=== PATIENT | male | born 1945 ===

== ENCOUNTER 2017-03-30 06:53 | Inpatient (IN) | payer MEDICARE ==
[2017-03-30] MEDS ORDERED: Propofol 10 mg/ml Inj (20 ML) ONE (09:01)
[2017-03-30] MEDS ORDERED: Lidocaine Hydrochloride 5 ML INJ ONE (09:01)
--- NOTE | 2017-03-30 09:05 | CP.SDSHP ---
Same Day Surgery H & P - History Proposed Procedure: EGD - Previous Medical/Surgical History Cardiac: Hypertension Endocrine/Metabolic: Diabetes Previous Surgical History: Appendectomy - Allergies Allergies: Allergies No Known Allergies Allergy (Unverified 03/30/17 07:12) - Current Medications Current Medications: See reconciliation sheet - Physical Exam General Appearance: WD WN male in NAD Vital Signs: Vital Signs 03/30/17 07:05 Temperature 97.5 F L Pulse Rate 67 Respiratory 19 Rate Blood Pressure 98/54 L O2 Sat by Pulse 97 Oximetry Mental Status: Alert & Oriented x3 Neuro: WNL Heart: WNL Lungs: WNL GI: WNL - {Optional Preform as Required} Abdomen: WNL - Impression Impression: Dyspepsia, abdominal pain Pt. Evaluated Today:Candidate for Anesthesia & Procedure: Yes - Date & Time Date: 03/30/17 Time: 09:05 Short Stay Discharge - Short Stay Discharge Admitting Diagnosis/Reason for Visit: DYSPEPSIA Disposition: HOME/ ROUTINE
[2017-03-30] MEDS ORDERED: Lactated Ringer's 500 ML IV ONE (09:06)
[2017-03-30] MEDS ORDERED: Pneumococcal 23-Valent Vaccine IM ONE (12:58)
--- NOTE | 2017-03-30 13:09 | CP.PCM.HP ---
<Cuauhtemoc Olmos - Last Filed: 03/30/17 14:48> History of Present Illness - History of Present Illness History of Present Illness: PGY1 History and Physical for Dr. Deleon Patient is at 71 year old male with a past medical history of diabetes, HTN, gastritis and palpitations. Patient is s/p EGD and was found to be in new onset afib. Patient states he has experienced palpitations on and off for many years. He reports having multiple stress tests, ekgs, ECHOs and a prior cardiac cath, all having negative results. He states he had recently seen Dr. Gibson for the palpitations who instructed him to get and EGD done due to multiple negative cardiac tests. He reports he has experienced some intermittent abdominal discomfort that is not associated with anything. He denies any fevers, chills, nausea, vomiting, diarrhea, constipation, shortness of breath or chest pain. He states he currently feels normal with no complaints at this time. Patient was in afib on the monitor throughout the exam but denied any feeling of palpitations. Patient states that he does not regularly use his medications. He states that he has experienced some abdominal discomfort and he thinks that it is partially due to the medications. He also feels that he does not need to take them everyday because his conditions are under control. PMD: Dr. Tinsley PMH: diabetes, HTN, gastritis and palpitations Family: DM and HTN Social: denies tobacco, alcohol or illicit drug use Allergies: NKDA Present on Admission - Present on Admission Any Indicators Present on Admission: Yes History of Uncontrolled Diabetes: Yes Review of Systems - Review of Systems All systems: reviewed and no additional remarkable complaints except (as per HPI ) Past Patient History - Past Medical History & Family History Past Medical History?: Yes - Past Social History Smoking Status: Never Smoked - CARDIAC Hx Cardiac Disorders: Yes Hx Hypercholesterolemia: Yes Hx Hypertension: Yes - PULMONARY Hx Respiratory Disorders: No - NEUROLOGICAL Hx Neurological Disorder: No - HEENT Hx HEENT Problems: No - RENAL Hx Chronic Kidney Disease: No - ENDOCRINE/METABOLIC Hx Endocrine Disorders: Yes Hx Diabetes Mellitus Type 1: Yes - HEMATOLOGICAL/ONCOLOGICAL Hx Blood Disorders: No - INTEGUMENTARY Hx Dermatological Problems: No - MUSCULOSKELETAL/RHEUMATOLOGICAL Hx Musculoskeletal Disorders: No - GASTROINTESTINAL Hx Gastrointestinal Disorders: Yes Hx Gastroesophageal Reflux: Yes - GENITOURINARY/GYNECOLOGICAL Hx Genitourinary Disorders: No - PSYCHIATRIC Hx Psychophysiologic Disorder: No - SURGICAL HISTORY Hx Surgeries: Yes Hx Appendectomy: Yes Hx Cataract Extraction: Yes (RIGHT EYE) Hx Orthopedic Surgery: Yes (FACIAL FX SURGERY) - ANESTHESIA Hx Anesthesia: Yes Hx Anesthesia Reactions: No Hx Malignant Hyperthermia: No Has any member of the family had a problem w/ anesthesia?: No Meds Allergies/Adverse Reactions: Allergies Allergy/AdvReac Type Severity Reaction Status Date / Time No Known Allergies Allergy Unverified 03/30/17 07:12 Physical Exam - Constitutional Appears: Well, Non-toxic, No Acute Distress - Head Exam Head Exam: ATRAUMATIC, NORMOCEPHALIC - Eye Exam Eye Exam: EOMI, Normal appearance, PERRL. absent: Scleral icterus - ENT Exam ENT Exam: Mucous Membranes Moist - Respiratory Exam Respiratory Exam: Clear to Auscultation Bilateral, NORMAL BREATHING PATTERN. absent: Accessory Muscle Use, Respiratory Distress - Cardiovascular Exam Cardiovascular Exam: Irregular Rhythm, +S1 - GI/Abdominal Exam GI & Abdominal Exam: Soft. absent: Distended, Guarding, Rigid, Tenderness - Extremities Exam Extremities exam: Positive for: pedal pulses present. Negative for: calf tenderness, pedal edema - Neurological Exam Neurological exam: Alert, CN II-XII Intact, Oriented x3 - Psychiatric Exam Psychiatric exam: Normal Affect, Normal Mood - Skin Skin Exam: Dry, Normal Color, Warm Results - Vital Signs Recent Vital Signs: Last Vital Signs Temp 97.5 F L 03/30/17 10:08 Pulse 99 H 03/30/17 10:08 Resp 13 03/30/17 10:08 BP 103/85 03/30/17 10:08 Pulse Ox 100 03/30/17 10:08 - Labs Labs: Laboratory Results - last 24 hr 03/30/17 03/30/17 07:14 11:58 POC Glucose (mg/dL) 175 H 142 H Assessment & Plan - Assessment and Plan (Free Text) Assessment: Patient is at 71 year old male with a past medical history of diabetes, HTN, gastritis and palpitations presenting with new onset afib s/p EGD Plan: New Onset Afib cardio consult, Dr. Gibson, help appreciated EKG - afib @ 97bpm, normal axis, no ST elevations Repeat EKG trop - <0.012, f/u x 2 q6h D-dimer - 260 f/u ECHO f/u TSH f/u free T4 f/u cardio recs Uncontrolled Diabetes Hgb A1c (jan 27) - 12.8 f/u repeat Hgb A1c Home Metformin on hold Hold Glipazide on hold hx of HTN Lisinopril 10mg PO daily Metoprolol Succ. ER 25mg PO daily Gastritis GI consult, Dr. Ndiaye, help appreciated s/p EGD - f/u official report Pepcid 40mg PO daily f/u GI recs Prophylactic Care SCDs Anti-coag contraindicated due to biopsy during EGD, hold until GI approval Pepcid 40mg PO daily Pneumonia vaccine Case discussed with Dr. Pancho Olmos PGY1 <Lor Deleon V - Last Filed: 03/30/17 18:15> Results - Vital Signs Recent Vital Signs: Last Vital Signs Temp 98 F 03/30/17 15:58 Pulse 68 03/30/17 15:58 Resp 20 03/30/17 15:58 BP 102/60 03/30/17 15:58 Pulse Ox 96 03/30/17 15:58 - Labs Result Diagrams: 03/30/17 17:26 Labs: Laboratory Results - last 24 hr 03/30/17 03/30/17 03/30/17 07:14 11:58 14:08 WBC RBC Hgb Hct MCV MCH MCHC RDW Plt Count MPV Neut % (Auto) Lymph % (Auto) [place] % (Auto) Eos % (Auto) Baso % (Auto) Neut # Lymph # [place] # Eos # Baso # D-Dimer, Quantitative POC Glucose (mg/dL) 175 H 142 H Troponin I < 0.0120 Free T4 TSH 3rd Generation 1.69 03/30/17 03/30/17 03/30/17 14:08 14:08 16:39 WBC RBC Hgb Hct MCV MCH MCHC RDW Plt Count MPV Neut % (Auto) Lymph % (Auto) [place] % (Auto) Eos % (Auto) Baso % (Auto) Neut # Lymph # [place] # Eos # Baso # D-Dimer, Quantitative 260 H POC Glucose (mg/dL) 249 H Troponin I Free T4 1.05 TSH 3rd Generation 03/30/17 17:26 WBC 7.9 RBC 4.84 Hgb 13.8 Hct 41.5 MCV 85.9 MCH 28.5 MCHC 33.2 RDW 13.8 Plt Count 172 MPV 10.5 Neut % (Auto) 65.4 Lymph % (Auto) 24.2 [place] % (Auto) 7.0 Eos % (Auto) 3.0 Baso % (Auto) 0.4 Neut # 5.2 Lymph # 1.9 [place] # 0.6 Eos # 0.2 Baso # 0.0 D-Dimer, Quantitative POC Glucose (mg/dL) Troponin I Free T4 TSH 3rd Generation Attending/Attestation - Attestation I have personally seen and examined this patient.: Yes I have fully participated in the care of the patient.: Yes I have reviewed all pertinent clinical information: Yes Notes (Text): Patient seen, examined, and case discussed with day-time resident. patient seen at bedside in the recovery area of the endoscopy suite with his girlfriend at bedside. patient permits me to speak with him in front of his girlfriend in regards to medical information. Patient denies headache, denies chest pain, denies palpitations, denies shortness of breathe, denies abdominal pain, denies gerd. Patient reports he is hungry and has not eaten since he needed the endoscopy today. Patient reports history of palpitations, wherein he has seen two cardiologists, his current suppository molding machine operator is Dr. Gibson who he reports he saw prior to procedure and he reports everything was ok. Patient also reports because of his gerd and and epigastric pain, he has not taken his medications including Metoprol ER succinate for the past couple of days as well. Patient receive Propfol and Lidocaine for anesthesia during procedure itself. Patient does have an abnormal EKG, I do not have prior EKG to compare to, unclear if this is new or old. Patient reports he has had extensive workup in the past including multiple stress test, 2 echos, and cath about 12 years which reports findings were normal, but I do not have these tests available to verify. Patient is a diabetic, and hypertensive. Per review of his labs from January 2017, patients CBC and CMP relatively normal, however a.8 which reflecting he is an uncontrolled diabetic. I am unable to anticoagulate patient today given he has had has biopsy today during the EGD for polyps and gastritis. Will need to f/u GI to see when we can anticoagulate patient. Advised resident to have patient take his Toprol XL 25mg PO once daily to rate control the patient. Order for TSH, D-dimer, BLANK and EKGi, 6Hours apart and patient's suppository molding machine operator on consult. Assessment/Plan 1) Abnormal EKG * Cardiology consult, Dr. Gibson, help appreciated * Monitor Telemtry * EKG - afib @ 97bpm, normal axis, no ST elevations * repeat EKG at 20:00 and 2AM 03/31 * BLANK 20:00 and 2AM 03/31 * D-dimer - 260-->pending BUN/Cr to determine if CT angio to be ordered * f/u ECHO * f/u TSH and Free T4: which are normal 2) Uncontrolled Diabetes * Hgb A1c (jan 27) - 12.8 * f/u repeat Hgb A1c * Home Metformin on hold * Hold Glipazide on hold 3) Hx of HTN * Lisinopril 10mg PO daily * Metoprolol Succ. ER 25mg PO daily * monitor Vital signs 4) Gastritis * GI consult, Dr. Ndiaye, help appreciated * s/p EGD - f/u official report * Will need to f/u biopsy report with Dr. Ndiaye as outpatient * Pepcid 40mg PO daily * f/u with GI, if patient requires anticoagulation 5) Prophylactic Care * SCDs * Anti-coag contraindicated due to biopsy during EGD, hold until GI approval * pepcid 40mg PO daily
[2017-03-30 15:59] VITALS: RESP 20
[2017-03-30 16:35] LABS: THYROID STIMULATING HORMONE 1.69 mIU/L (0.46-4.68)
[2017-03-30] MEDS: Lactated Ringer's 500 ML IV SCH ×2 (16:57→21:18)
[2017-03-30 17:42] LABS: BASO % 0.4 % (0.0-2.0); EOS # 0.2 K/uL (0.0-0.7); HEMATOCRIT 41.5 % (35.0-51.0); LYMPH # 1.9 K/uL (1.0-4.3); LYMPH % 24.2 % (20.0-40.0); MEAN CELL VOLUME 85.9 fL (80.0-94.0); MEAN CORPUSCULAR HEMOGLOBIN 28.5 pg (27.0-31.0); MEAN CORPUSCULAR HGB CONC 33.2 g/dL (33.0-37.0); MEAN PLATELET VOLUME 10.5 fL (7.2-11.7); MONO # 0.6 K/uL (0.0-0.8); RED CELL DISTRIBUTION WIDTH 13.8 % (11.5-14.5); WHITE BLOOD COUNT 7.9 K/uL (4.8-10.8)
[2017-03-30] MEDS: Metoprolol Succinate 25 mg XL Tab PO SCH (18:06)
[2017-03-30] MEDS: (Novolin R) Insulin Human Regular 100 units/ml vial SC SCH ×2 (18:06→21:17)
[2017-03-30 18:58] LABS: ALKALINE PHOSPHATASE 50 U/L (38-126); ALT/SGPT 48 U/L (21-72); AST/SGOT 30 U/L (17-59); BILIRUBIN,TOTAL 0.5 mg/dL (0.2-1.3); BLOOD UREA NITROGEN 25 mg/dL (9-20); CARBON DIOXIDE 26 mmol/L (22-30); CHLORIDE 105 mmol/L (98-107); GFR AFRICAN-AMERICAN > 60; GLUCOSE,RANDOM 226 mg/dL (75-110); SODIUM 138 mmol/L (132-148); TOTAL PROTEIN 6.1 g/dL (6.3-8.3)
[2017-03-30 19:02] LABS: ALB/GLOB RATIO 1.5 (1.0-2.1)
[2017-03-30] MEDS ORDERED: Iodixanol 320 MG/ML 100 ML BOTTLE IV ONE (22:26)
--- NOTE | 2017-03-30 23:15 | CT ---
EXAM: CT Angiography Chest With Intravenous Contrast CLINICAL HISTORY: 71 years old, male; Pain; Chest wall pain; Additional info: Elevated d-dimer, rule out pe TECHNIQUE: Axial computed tomographic angiography images of the chest with intravenous contrast using pulmonary embolism protocol. All CT scans at this facility use one or more dose reduction techniques, viz.: automated exposure control; ma/kV adjustment per patient size (including targeted exams where dose is matched to indication; i.e. head); or iterative reconstruction technique. MIP reconstructed images were created and reviewed. Coronal and sagittal reformatted images were created and reviewed. CONTRAST: 100 mL of visipaque 320 administered intravenously. COMPARISON: No relevant prior studies available. 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 Ascending aorta at the right main pulmonary artery measures 4.1 CM. Descending aorta at the same level measures 2.9 CM. Thoracic aorta is also atherosclerotic. No evidence for acute pulmonary embolism. Aorta: See above. Lungs: Mild biapical scarring. Mild atelectasis or scarring at the bases, right greater than left. No mass. Pleural space: The lungs are free of significant consolidation, pleural effusion or pneumothorax. Heart: The heart is not enlarged. No significant pericardial effusion. Mediastinum: The esophagus is normal. Thyroid: Thyroid is normal in size and position. Bones/joints: There are moderate degenerative changes of the spine. No acute fracture. No dislocation. Soft tissues: Unremarkable. Lymph nodes: There is no axillary adenopathy. No mediastinal or hilar adenopathy. Pancreas: Pancreas is slightly atrophic and partially fatty replaced. Spleen: Spleen demonstrates a few calcified granulomata. Upper abdomen: Scans through the upper abdomen demonstrate no definite acute abnormalities. Other findings: Focal scarring versus nodule in the left apex measures 12 x 9 mm on series 3, image 21. If indicated, followup of this finding can be obtained. IMPRESSION: 1. 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 Ascending aorta at the right main pulmonary artery measures 4.1 CM. Descending aorta at the same level measures 2.9 CM. Thoracic aorta is also atherosclerotic. 2. Focal scarring versus nodule in the left apex measures 12 x 9 mm on series 3, image 21. If indicated, followup of this finding can be obtained. 3. No evidence for acute pulmonary embolism. 4. Additional incidental and/or chronic findings as described.
[2017-03-31] MEDS: Lactated Ringer's 500 ML IV SCH ×3 (04:21→12:17)
--- NOTE | 2017-03-31 07:06 | CP.PCM.CON ---
History of Present Illness - History of Present Illness History of Present Illness: chart imaging reviewed Admitted after endoscopy due to new onset atrial fibrillation He was seen earlier in the office with palpitations and chest pain Past medical history significant for systemic hypertension and diabetes mellitus Denied syncope edema Past Patient History - Past Medical History & Family History Past Medical History?: Yes - Past Social History Smoking Status: Never Smoked - CARDIAC Hx Cardiac Disorders: Yes Hx Hypercholesterolemia: Yes Hx Hypertension: Yes - PULMONARY Hx Respiratory Disorders: No - NEUROLOGICAL Hx Neurological Disorder: No - HEENT Hx HEENT Problems: No - RENAL Hx Chronic Kidney Disease: No - ENDOCRINE/METABOLIC Hx Endocrine Disorders: Yes Hx Diabetes Mellitus Type 1: Yes - HEMATOLOGICAL/ONCOLOGICAL Hx Blood Disorders: No - INTEGUMENTARY Hx Dermatological Problems: No - MUSCULOSKELETAL/RHEUMATOLOGICAL Hx Musculoskeletal Disorders: No Hx Falls: Yes (fell on ice last year) - GASTROINTESTINAL Hx Gastrointestinal Disorders: Yes Hx Gastritis: Yes Hx Gastroesophageal Reflux: Yes - GENITOURINARY/GYNECOLOGICAL Hx Genitourinary Disorders: No - PSYCHIATRIC Hx Psychophysiologic Disorder: No Hx Substance Use: No - SURGICAL HISTORY Hx Surgeries: Yes Hx Appendectomy: Yes Hx Cataract Extraction: Yes (RIGHT EYE) Other/Comment: facial/nose fracture surgery - ANESTHESIA Hx Anesthesia: Yes Hx Anesthesia Reactions: No Hx Malignant Hyperthermia: No Has any member of the family had a problem w/ anesthesia?: No Meds Allergies/Adverse Reactions: Allergies Allergy/AdvReac Type Severity Reaction Status Date / Time No Known Allergies Allergy Unverified 03/30/17 07:12 - Medications Medications: Current Medications Famotidine (Pepcid) 40 mg PO DAILY [facility] Lactated Ringer's (Lactated Ringer's 500ml) 500 mls @ 75 mls/hr IV .Q6H40M [facility] Last Admin: 03/31/17 06:04 Dose: 75 mls/hr Insulin Human Regular (Novolin R) 0 unit SC ACHS [facility] PRN Reason: Protocol Last Admin: 03/30/17 21:17 Dose: Not Given Lisinopril (Zestril) 10 mg PO DAILY [facility] Metoprolol Succinate (Toprol Xl) 25 mg PO DAILY [facility] Last Admin: 03/30/17 18:06 Dose: 25 mg Rosuvastatin Calcium (Crestor) 10 mg PO HS [facility] Last Admin: 03/30/17 21:31 Dose: 10 mg Results - Vital Signs Recent Vital Signs: Last Vital Signs Temp 97.6 F 03/30/17 23:40 Pulse 53 L 03/31/17 04:15 Resp 20 03/30/17 23:40 BP 119/66 03/30/17 23:40 Pulse Ox 96 03/30/17 23:40 - Labs Result Diagrams: 03/30/17 17:26 03/30/17 17:26 Labs: Laboratory Results - last 24 hr 03/30/17 03/30/17 03/30/17 07:14 11:58 14:08 WBC RBC Hgb Hct MCV MCH MCHC RDW Plt Count MPV Neut % (Auto) Lymph % (Auto) [place] % (Auto) Eos % (Auto) Baso % (Auto) Neut # Lymph # [place] # Eos # Baso # D-Dimer, Quantitative Sodium Potassium Chloride Carbon Dioxide Anion Gap BUN Creatinine Est GFR ( Amer) Est GFR (Non-Af Amer) POC Glucose (mg/dL) 175 H 142 H Random Glucose Calcium Total Bilirubin AST ALT Alkaline Phosphatase Total Creatine Kinase CK-MB (Mass) Troponin I < 0.0120 Total Protein Albumin Globulin Albumin/Globulin Ratio Free T4 TSH 3rd Generation 1.69 03/30/17 03/30/17 03/30/17 14:08 14:08 16:39 WBC RBC Hgb Hct MCV MCH MCHC RDW Plt Count MPV Neut % (Auto) Lymph % (Auto) [place] % (Auto) Eos % (Auto) Baso % (Auto) Neut # Lymph # [place] # Eos # Baso # D-Dimer, Quantitative 260 H Sodium Potassium Chloride Carbon Dioxide Anion Gap BUN Creatinine Est GFR ( Amer) Est GFR (Non-Af Amer) POC Glucose (mg/dL) 249 H Random Glucose Calcium Total Bilirubin AST ALT Alkaline Phosphatase Total Creatine Kinase CK-MB (Mass) Troponin I Total Protein Albumin Globulin Albumin/Globulin Ratio Free T4 1.05 TSH 3rd Generation 03/30/17 03/30/17 03/30/17 17:26 17:26 17:26 WBC 7.9 RBC 4.84 Hgb 13.8 Hct 41.5 MCV 85.9 MCH 28.5 MCHC 33.2 RDW 13.8 Plt Count 172 MPV 10.5 Neut % (Auto) 65.4 Lymph % (Auto) 24.2 [place] % (Auto) 7.0 Eos % (Auto) 3.0 Baso % (Auto) 0.4 Neut # 5.2 Lymph # 1.9 [place]ard # 0.6 Eos # 0.2 Baso # 0.0 D-Dimer, Quantitative 274 H Sodium 138 Potassium 4.0 Chloride 105 Carbon Dioxide 26 Anion Gap 12 BUN 25 H Creatinine 1.0 Est GFR ( Amer) > 60 Est GFR (Non-Af Amer) > 60 POC Glucose (mg/dL) Random Glucose 226 H Calcium 8.0 L Total Bilirubin 0.5 AST 30 ALT 48 Alkaline Phosphatase 50 Total Creatine Kinase CK-MB (Mass) Troponin I Total Protein 6.1 L Albumin 3.7 Globulin 2.5 Albumin/Globulin Ratio 1.5 Free T4 TSH 3rd Generation 03/30/17 03/30/17 03/30/17 17:31 20:02 21:08 WBC RBC Hgb Hct MCV MCH MCHC RDW Plt Count MPV Neut % (Auto) Lymph % (Auto) [place] % (Auto) Eos % (Auto) Baso % (Auto) Neut # Lymph # [place]ard # Eos # Baso # D-Dimer, Quantitative Sodium Potassium Chloride Carbon Dioxide Anion Gap BUN Creatinine Est GFR ( Amer) Est GFR (Non-Af Amer) POC Glucose (mg/dL) 180 H Random Glucose Calcium Total Bilirubin AST ALT Alkaline Phosphatase Total Creatine Kinase 166 CK-MB (Mass) 1.80 Troponin I < 0.0120 Total Protein Albumin Globulin Albumin/Globulin Ratio Free T4 1.03 TSH 3rd Generation 03/31/17 03/31/17 03:13 06:30 WBC RBC Hgb Hct MCV MCH MCHC RDW Plt Count MPV Neut % (Auto) Lymph % (Auto) [place] % (Auto) Eos % (Auto) Baso % (Auto) Neut # Lymph # [place] # Eos # Baso # D-Dimer, Quantitative Sodium Potassium Chloride Carbon Dioxide Anion Gap BUN Creatinine Est GFR ( Amer) Est GFR (Non-Af Amer) POC Glucose (mg/dL) 194 H Random Glucose Calcium Total Bilirubin AST ALT Alkaline Phosphatase Total Creatine Kinase 166 CK-MB (Mass) 1.57 Troponin I < 0.0120 Total Protein Albumin Globulin Albumin/Globulin Ratio Free T4 TSH 3rd Generation Assessment & Plan - Assessment and Plan (Free Text) Assessment: Mr. Nguyen has new onset paroxysmal atrial fibrillation currently in sinus rhythm; the underlying myocardial substrate is likely hypertensive heart disease ; [id number] exceed bleeding scores and warrant the need for termite control technician anticoagulation; a rhythm strategy may be of utility; Plan: Plan 2D echo
[2017-03-31] MEDS: (Novolin R) Insulin Human Regular 100 units/ml vial SC SCH ×2 (08:30→12:30)
[2017-03-31 08:53] LABS: BASO % 0.4 % (0.0-2.0); EOS # 0.2 K/uL (0.0-0.7); EOS % 3.6 % (0.0-4.0); HEMATOCRIT 43.5 % (35.0-51.0); LYMPH # 1.5 K/uL (1.0-4.3); LYMPH % 23.5 % (20.0-40.0); MEAN CELL VOLUME 85.8 fL (80.0-94.0); MEAN CORPUSCULAR HGB CONC 33.8 g/dL (33.0-37.0); MEAN PLATELET VOLUME 10.3 fL (7.2-11.7); MONO # 0.4 K/uL (0.0-0.8); MONO % 6.9 % (0.0-10.0); WHITE BLOOD COUNT 6.3 K/uL (4.8-10.8)
[2017-03-31 09:02] VITALS: BP 133/76; PULSE 57; TEMP 98.6; O2SAT 95
[2017-03-31 09:14] LABS: ALKALINE PHOSPHATASE 58 U/L (38-126); ALT/SGPT 51 U/L (21-72); AST/SGOT 29 U/L (17-59); BILIRUBIN,TOTAL 0.6 mg/dL (0.2-1.3); BLOOD UREA NITROGEN 20 mg/dL (9-20); CALCIUM 8.8 mg/dl (8.6-10.4); CARBON DIOXIDE 31 mmol/L (22-30); CHLORIDE 98 mmol/L (98-107); CHOLESTEROL 191 mg/dL (0-199); GFR AFRICAN-AMERICAN > 60; GLUCOSE,RANDOM 188 mg/dL (75-110); MAGNESIUM 1.8 mg/dL (1.6-2.3); PHOSPHOROUS 3.2 mg/dL (2.5-4.5); POTASSIUM 4.8 mmol/L (3.6-5.2); SODIUM 136 mmol/L (132-148); TOTAL PROTEIN 8.9 g/dL (6.3-8.3)
[2017-03-31] MEDS: Metoprolol Succinate 25 mg XL Tab PO SCH (10:36)
--- NOTE | 2017-03-31 11:05 | CP.PCM.PN ---
Subjective - Date & Time of Evaluation Date of Evaluation: 03/31/17 Time of Evaluation: 11:02 - Subjective Subjective: Medicine Progress Note: Hospitalist Service Patient seen and examined at bedside. Per nursing no acute events overnight. Patient is doing well offers no complaints at this time. Ambulating and tolerating diet. Denies headaches, dizziness, cp, palpitations, sob, abdominal pain, urinary symptoms, changes in bowel habits. Objective - Vital Signs/Intake and Output Vital Signs (last 24 hours): Temp Pulse Resp BP Pulse Ox 98.6 F 57 L 20 133/76 95 03/31/17 09:01 03/31/17 09:01 03/31/17 09:01 03/31/17 09:01 03/31/17 09:01 Intake and Output: 03/31/17 03/31/17 06:59 18:59 Intake Total 2049 Balance 2049 - Medications Medications: Current Medications Famotidine (Pepcid) 40 mg PO DAILY [facility] Last Admin: 03/31/17 10:36 Dose: 40 mg Lactated Ringer's (Lactated Ringer's 500ml) 500 mls @ 75 mls/hr IV .Q6H40M [facility] Last Admin: 03/31/17 06:04 Dose: 75 mls/hr Insulin Human Regular (Novolin R) 0 unit SC ACHS [facility] PRN Reason: Protocol Last Admin: 03/31/17 08:30 Dose: Not Given Lisinopril (Zestril) 10 mg PO DAILY [facility] Last Admin: 03/31/17 10:36 Dose: 10 mg Metoprolol Succinate (Toprol Xl) 25 mg PO DAILY [facility] Last Admin: 03/31/17 10:36 Dose: 25 mg Rosuvastatin Calcium (Crestor) 10 mg PO HS [facility] Last Admin: 03/30/17 21:31 Dose: 10 mg - Labs Labs: 03/31/17 08:35 03/31/17 08:35 - Constitutional Appears: Well, No Acute Distress - Head Exam Head Exam: ATRAUMATIC, NORMAL INSPECTION - Eye Exam Eye Exam: EOMI, Normal appearance - ENT Exam ENT Exam: Mucous Membranes Moist - Neck Exam Neck Exam: Full ROM - Respiratory Exam Respiratory Exam: Clear to Ausculation Bilateral, NORMAL BREATHING PATTERN. absent: Rales, Rhonchi, Wheezes - Cardiovascular Exam Cardiovascular Exam: REGULAR RHYTHM, +S1, +S2. absent: Diastolic murmur, Murmur - GI/Abdominal Exam GI & Abdominal Exam: Soft, Normal Bowel Sounds. absent: Guarding, Rigid, Tenderness, Rebound - Extremities Exam Extremities Exam: Full ROM, Normal Inspection. absent: Calf Tenderness Additional comments: +pedal pulses - Neurological Exam Neurological Exam: Alert, Awake, CN II-XII Intact, Normal Gait, Oriented x3 - Psychiatric Exam Psychiatric exam: Normal Affect, Normal Mood - Skin Skin Exam: Dry, Normal Color, Warm
--- NOTE | 2017-03-31 12:49 | CP.PCM.DIS ---
<Angella Acuna - Last Filed: 03/31/17 17:52> Provider - Provider Date of Admission: 03/30/17 22:36 Attending physician: Lor Deleon DO Time Spent in preparation of Discharge (in minutes): 30 Hospital Course - Lab Results Lab Results: Most Recent Lab Values WBC 6.3 K/uL (4.8-10.8) 03/31/17 08:35 RBC 5.07 Mil/uL (4.40-5.90) 03/31/17 08:35 Hgb 14.7 g/dL (12.0-18.0) 03/31/17 08:35 Hct 43.5 % (35.0-51.0) 03/31/17 08:35 MCV 85.8 fL (80.0-94.0) 03/31/17 08:35 MCH 29.0 pg (27.0-31.0) 03/31/17 08:35 MCHC 33.8 g/dL (33.0-37.0) 03/31/17 08:35 RDW 14.0 % (11.5-14.5) 03/31/17 08:35 Plt Count 185 K/uL (130-400) 03/31/17 08:35 MPV 10.3 fL (7.2-11.7) 03/31/17 08:35 Neut % (Auto) 65.6 % (50.0-75.0) 03/31/17 08:35 Lymph % (Auto) 23.5 % (20.0-40.0) 03/31/17 08:35 Ware % (Auto) 6.9 % (0.0-10.0) 03/31/17 08:35 Eos % (Auto) 3.6 % (0.0-4.0) 03/31/17 08:35 Baso % (Auto) 0.4 % (0.0-2.0) 03/31/17 08:35 Neut # 4.2 K/uL (1.8-7.0) 03/31/17 08:35 Lymph # 1.5 K/uL (1.0-4.3) 03/31/17 08:35 Ware # 0.4 K/uL (0.0-0.8) 03/31/17 08:35 Eos # 0.2 K/uL (0.0-0.7) 03/31/17 08:35 Baso # 0.0 K/uL (0.0-0.2) 03/31/17 08:35 D-Dimer, Quantitative 274 ng/mlDDU (0-243) H 03/30/17 17:26 Sodium 136 mmol/L (132-148) 03/31/17 08:35 Potassium 4.8 mmol/L (3.6-5.2) 03/31/17 08:35 Chloride 98 mmol/L (98-107) 03/31/17 08:35 Carbon Dioxide 31 mmol/L (22-30) H 03/31/17 08:35 Anion Gap 13 (10-20) 03/31/17 08:35 BUN 20 mg/dL (9-20) 03/31/17 08:35 Creatinine 1.1 mg/dL (0.8-1.5) 03/31/17 08:35 Est GFR ( Amer) > 60 03/31/17 08:35 Est GFR (Non-Af Amer) > 60 03/31/17 08:35 POC Glucose (mg/dL) 231 mg/dL (65-110) H 03/31/17 11:22 Random Glucose 188 mg/dL (75-110) H 03/31/17 08:35 Calcium 8.8 mg/dl (8.6-10.4) 03/31/17 08:35 Phosphorus 3.2 mg/dL (2.5-4.5) 03/31/17 08:35 Magnesium 1.8 mg/dL (1.6-2.3) 03/31/17 08:35 Total Bilirubin 0.6 mg/dL (0.2-1.3) 03/31/17 08:35 AST 29 U/L (17-59) 03/31/17 08:35 ALT 51 U/L (21-72) 03/31/17 08:35 Alkaline Phosphatase 58 U/L (38-126) 03/31/17 08:35 Total Creatine Kinase 166 U/L (55-170) 03/31/17 03:13 CK-MB (Mass) 1.57 ng/mL (0.0-3.38) 03/31/17 03:13 Troponin I < 0.0120 ng/mL (0.00-0.120) 03/31/17 03:13 Total Protein 8.9 g/dL (6.3-8.3) H 03/31/17 08:35 Albumin 4.5 g/dL (3.5-5.0) 03/31/17 08:35 Globulin 4.4 gm/dL (2.2-3.9) H 03/31/17 08:35 Albumin/Globulin Ratio 1.0 (1.0-2.1) 03/31/17 08:35 Triglycerides 75 mg/dL (0-149) 03/31/17 08:35 Cholesterol 191 mg/dL (0-199) 03/31/17 08:35 LDL Cholesterol Direct 156 mg/dL (0-129) H 03/31/17 08:35 HDL Cholesterol 41 mg/dL (30-70) 03/31/17 08:35 Free T4 1.03 ng/dL (0.78-2.19) 03/30/17 17:31 TSH 3rd Generation 1.69 mIU/L (0.46-4.68) 03/30/17 14:08 - Hospital Course Hospital Course: Patient is at 71 year old male with a past medical history of diabetes, HTN, gastritis and palpitations. Patient is s/p EGD and was found to be in new onset afib on EKG. Patient states he has experienced palpitations on and off for many years. He reports having multiple stress tests, ekgs, ECHOs and a prior cardiac cath, all having negative results. He states he had recently seen Dr. Gibson for the palpitations who instructed him to get and EGD done due to multiple negative cardiac tests. EGD performed on 03/30 report showed mucosal nodules in esophagus, small hiatal hernia, atrophic gastritis, 3 gastric polyps (see full report). Patient was admitted and monitored on telemetry. Cardiology was consulted and following the patient. Follow up EKG showed sinus bradycardia. BLANK negative x 3. Echo was performed, EF approximately 58%, official report is pending. [id number] was calculated to be 3. Patient in need of anticoagulation. GI cleared patient for anticoagulation use. Per cardiology recommendations, patient was started on Pradaxa 150mg PO BID. Patient was found to have elevated D-Dimer at 260, repeat was 274. CT chest showed thoracic aorta mildly aneurysmal (aortic root 3.6cm, ascending aorta 4.1cm, descending aorta 2.9cm), please see full report. TSH level normal. LDL was elevated at 156. Patient has a history of diabetes, hgbA1C in January was 12.8. Patient was on insulin sliding scale. On day of discharge, patient was doing well. Patient was ambulating and tolerating diet. Denies having any headaches, dizziness, cp, palpitations, cp, sob, urinary symptoms, changes in bowel habits. He was sent for Lower extremity dopplers that were negative for DVT. Patient was medically stable and cleared for discharge home. Script for urgent care physician given. All questions and concerns addressed. Medications reconciled. Patient to follow up with PMD and Cardiology within 1 week. Pathology results from biopsy still pending, patient to follow up with GI as outpatient. Discharge Exam - Head Exam Head Exam: ATRAUMATIC, NORMAL INSPECTION - Eye Exam Eye Exam: EOMI, Normal appearance Pupil Exam: NORMAL ACCOMODATION - ENT Exam ENT Exam: Mucous Membranes Moist - Neck Exam Neck exam: Full Rom - Respiratory Exam Respiratory Exam: Clear to PA & Lateral, NORMAL BREATHING PATTERN, UNREMARKABLE. absent: Rales, Rhonchi, Wheezes, Respiratory Distress - Cardiovascular Exam Cardiovascular Exam: REGULAR RHYTHM, +S1, +S2. absent: Bradycardia, Tachycardia , Diastolic murmur, Systolic Murmur - GI/Abdominal Exam GI & Abdominal Exam: Normal Bowel Sounds, Soft. absent: Guarding, Rebound, Rigid, Tenderness - Extremities Exam Extremities exam: normal inspection, pedal pulses present - Back Exam Back exam: NORMAL INSPECTION - Neurological Exam Neurological exam: Alert, CN II-XII Intact, Normal Gait, Oriented x3 - Psychiatric Exam Psychiatric exam: Normal Affect, Normal Mood - Skin Skin Exam: Dry, Normal Color, Warm Discharge Plan - Discharge Medications Prescriptions: Dabigatran [Pradaxa] 150 mg PO BID #60 cap - Follow Up Plan Condition: STABLE Disposition: HOME/ ROUTINE Instructions: Dabigatran (By mouth) Referrals: Alexa Gibson MD [Staff Provider] - 1 Week (Follow-up in his office in one week) Omar Tinsley MD, PhD [Family Provider] - 1 Week <Lor Deleon V - Last Filed: 03/31/17 21:56> Provider - Provider Date of Admission: 03/30/17 22:36 Attending physician: Lor Deleon DO Consults: Dr. Gibson (cardiology) Dr. Ndiaye (GI) Time Spent in preparation of Discharge (in minutes): 31 Diagnosis - Discharge Diagnosis (1) New onset atrial fibrillation Status: Acute Comment: patient's senior java j2ee developer on consult. Discussed case with senior java j2ee developer, recommends Pradaxa 150mg PO BID, recommends to see the patient within one week of discharge. Thyroid studies are normal. CT angio ruled out PE. Patient's rate controlled on Toprol XL. (2) Gastritis Status: Chronic Comment: Patient completed outpatient endoscopy with Dr. Ndiaye 03/30. Will need to f/u outpatient for biopsy results. Discussed with GI 03/31 prior to starting anticoagulation today. (3) Elevated d-dimer Status: Ruled-out Comment: CT angio ruled out PE. venous dopplers Negative for DVT b/l Hospital Course - Lab Results Lab Results: Most Recent Lab Values WBC 6.3 K/uL (4.8-10.8) 03/31/17 08:35 RBC 5.07 Mil/uL (4.40-5.90) 03/31/17 08:35 Hgb 14.7 g/dL (12.0-18.0) 03/31/17 08:35 Hct 43.5 % (35.0-51.0) 03/31/17 08:35 MCV 85.8 fL (80.0-94.0) 03/31/17 08:35 MCH 29.0 pg (27.0-31.0) 03/31/17 08:35 MCHC 33.8 g/dL (33.0-37.0) 03/31/17 08:35 RDW 14.0 % (11.5-14.5) 03/31/17 08:35 Plt Count 185 K/uL (130-400) 03/31/17 08:35 MPV 10.3 fL (7.2-11.7) 03/31/17 08:35 Neut % (Auto) 65.6 % (50.0-75.0) 03/31/17 08:35 Lymph % (Auto) 23.5 % (20.0-40.0) 03/31/17 08:35 Ware % (Auto) 6.9 % (0.0-10.0) 03/31/17 08:35 Eos % (Auto) 3.6 % (0.0-4.0) 03/31/17 08:35 Baso % (Auto) 0.4 % (0.0-2.0) 03/31/17 08:35 Neut # 4.2 K/uL (1.8-7.0) 03/31/17 08:35 Lymph # 1.5 K/uL (1.0-4.3) 03/31/17 08:35 Ware # 0.4 K/uL (0.0-0.8) 03/31/17 08:35 Eos # 0.2 K/uL (0.0-0.7) 03/31/17 08:35 Baso # 0.0 K/uL (0.0-0.2) 03/31/17 08:35 D-Dimer, Quantitative 274 ng/mlDDU (0-243) H 03/30/17 17:26 Sodium 136 mmol/L (132-148) 03/31/17 08:35 Potassium 4.8 mmol/L (3.6-5.2) 03/31/17 08:35 Chloride 98 mmol/L (98-107) 03/31/17 08:35 Carbon Dioxide 31 mmol/L (22-30) H 03/31/17 08:35 Anion Gap 13 (10-20) 03/31/17 08:35 BUN 20 mg/dL (9-20) 03/31/17 08:35 Creatinine 1.1 mg/dL (0.8-1.5) 03/31/17 08:35 Est GFR ( Amer) > 60 03/31/17 08:35 Est GFR (Non-Af Amer) > 60 03/31/17 08:35 POC Glucose (mg/dL) 231 mg/dL (65-110) H 03/31/17 11:22 Random Glucose 188 mg/dL (75-110) H 03/31/17 08:35 Calcium 8.8 mg/dl (8.6-10.4) 03/31/17 08:35 Phosphorus 3.2 mg/dL (2.5-4.5) 03/31/17 08:35 Magnesium 1.8 mg/dL (1.6-2.3) 03/31/17 08:35 Total Bilirubin 0.6 mg/dL (0.2-1.3) 03/31/17 08:35 AST 29 U/L (17-59) 03/31/17 08:35 ALT 51 U/L (21-72) 03/31/17 08:35 Alkaline Phosphatase 58 U/L (38-126) 03/31/17 08:35 Total Creatine Kinase 166 U/L (55-170) 03/31/17 03:13 CK-MB (Mass) 1.57 ng/mL (0.0-3.38) 03/31/17 03:13 Troponin I < 0.0120 ng/mL (0.00-0.120) 03/31/17 03:13 Total Protein 8.9 g/dL (6.3-8.3) H 03/31/17 08:35 Albumin 4.5 g/dL (3.5-5.0) 03/31/17 08:35 Globulin 4.4 gm/dL (2.2-3.9) H 03/31/17 08:35 Albumin/Globulin Ratio 1.0 (1.0-2.1) 03/31/17 08:35 Triglycerides 75 mg/dL (0-149) 03/31/17 08:35 Cholesterol 191 mg/dL (0-199) 03/31/17 08:35 LDL Cholesterol Direct 156 mg/dL (0-129) H 03/31/17 08:35 HDL Cholesterol 41 mg/dL (30-70) 03/31/17 08:35 Free T4 1.03 ng/dL (0.78-2.19) 03/30/17 17:31 TSH 3rd Generation 1.69 mIU/L (0.46-4.68) 03/30/17 14:08 - Date & Time of H&P Date of H&P: 03/30/17 Time of H&P: 13:03 Attending/Attestation - Attestation I have personally seen and examined this patient.: Yes I have fully participated in the care of the patient.: Yes I have reviewed all pertinent clinical information, including history, physical exam and plan: Yes Notes (Text): Patient seen, examined, and case discussed with day-time resident. Patient seen this morning with his girlfriend and girlfriend's daughter at bedside. Patient permits me to discuss his medical information in front of his family. Patient denies acute complaints. Patient reports he is tolerating diet. Denies any associated abdominal pain, nor gerd. Discussed with cardiology, recommend for Pradaxa 150mg PO bid and to follow-up with him within one week. I discussed with patient in regards to bleeding risk associated with blood thinners, and the reason why anticoagulation is recommendation is given stroke risk associated with his abnormal heart rhythm. Patient understands. Discussed with GI prior to starting anticoagulation, which he permits post-procedure. Discussed with patient that he needs to be monitor for aneurysmal changes noted in CT Angio, recommended to be compliant on his anti-hypertensive and to follow- up with his PMD for further monitoring. New prescription upon discharge: Pradaxa 150mg PO BID (60 tabs/0 refills) This is a summary of patient's hospitalization. Please see EMR for further details. Discharge Diagnoses: 1) New onset Atrial fibrillation-->Stable, Rate Controlled Abnormal EKG * Cardiology consult, Dr. Gibson, help appreciated * Monitor Telemtery * EKG - afib @ 97bpm, normal axis, no ST elevations; f/u EKG sinus bradycardia * BLANK X3: negative * D-dimer - 260-->pending BUN/Cr to determine if CT angio to be ordered * ECHO (03/31/17): normal left ventricular systolic function. Normal doppler. Aortic root mildly dilated 3.9 cm. Ascending aorta mildly dilated 4.0 cm * TSH and Free T4: which are normal * Venous doppler: negative b/l DVTs * CT Angio: No evidence for acute pulmonary embolism. Focal scarring versus nodule in the left apex measures 12 X 9mm. Thoracic aorta is mildy aneursymal: aortic root 3.6cm, ascending aorta of right main pulmonary artery 4.1cm, descending aorta 2.9cm, thoracic aorta atherosclerotic 2) Uncontrolled Diabetes * Hgb A1c (jan 27) - 12.8 * Resume home medications * Lipid disorder: T, Cholestrol: 191, LDL: 156, and HDL:41 * Will need outpatient monitoring and understands needs to have diet and lifestyle modifications 3) Hx of HTN * Lisinopril 10mg PO daily * Metoprolol Succ. ER 25mg PO daily * monitor Vital signs * Blood pressure controlled 4) Gastritis * GI consult, Dr. Ndiaye, help appreciated * s/p EGD - official report available in EMR * Will need to f/u biopsy report with Dr. Ndiaye as outpatient * Pepcid 40mg PO daily 5) Abnormal CT Finding * CT Angio: No evidence for acute pulmonary embolism. Focal scarring versus nodule in the left apex measures 12 X 9mm. Thoracic aorta is mildy aneursymal: aortic root 3.6cm, ascending aorta of right main pulmonary artery 4.1cm, descending aorta 2.9cm, thoracic aorta atherosclerotic * Spoke with patient he understands he needs to take anti-hypertensive medications to prevent further widening and that he has widening of the main arteries that will need to be monitor to prevent any rupture in the future. Patient recommended to follow-up with his PMD outpatient for further monitoring. 6) Prophylactic Care * SCDs * pepcid 40mg PO daily * Pradaxa 150mg PO BID per cardiology for new onset atrial fibrillation; discussed with GI, who permits anticoagulation post EGD POD#1
--- NOTE | 2017-03-31 15:06 | VASCLAB ---
PROCEDURE: Lower Extremity Venous Duplex Exam. HISTORY: r/o DVT PRIORS: None. TECHNIQUE: Bilateral common femoral, femoral, popliteal and posterior tibial, peroneal and great saphenous veins were evaluated. Flow was assessed with color Doppler, compressibility, assessment of phasic flow and augmentation response. Report prepared by Laurent Sousa, MICHAEL, RVT FINDINGS: RIGHT: 1. Common Femoral Vein: 1.1. Compressibility - Fully compressible: Thrombus - None : Flow - Phasic: Augmentation -Normal: Reflux - None. 2. Femoral Vein: 2.1. Compressibility - Fully compressible: Thrombus - None : Flow - Phasic: Augmentation -Normal: Reflux - None. 3. Popliteal Vein: 3.1. Compressibility - Fully compressible: Thrombus - None : Flow - Phasic: Augmentation -Normal: Reflux - None. 4. Posterior Tibial Vein: 4.1. Compressibility - Fully compressible: Thrombus - None: Flow - Phasic: Augmentation -Normal: Reflux - None. 5. Peroneal Vein: 5.1. Compressibility - Fully compressible: Thrombus - None: Flow - Phasic: Augmentation -Normal: Reflux - None. 6. Great Saphenous Vein: 6.1. Compressibility - Fully compressible: Thrombus - None: Flow - Phasic: Augmentation - Normal: Reflux - None. LEFT: 1. Common Femoral Vein: 1.1. Compressibility - Fully compressible: Thrombus - None: Flow - Phasic: Augmentation -Normal: Reflux - None. 2. Femoral Vein: 2.1. Compressibility - Fully compressible: Thrombus - None: Flow - Phasic: Augmentation -Normal: Reflux - None. 3. Popliteal Vein: 3.1. Compressibility - Fully compressible: Thrombus - None : Flow - Phasic: Augmentation -Normal: Reflux - None. 4. Posterior Tibial Vein: 4.1. Compressibility - Fully compressible: Thrombus - None: Flow - Phasic: Augmentation -Normal: Reflux - None. 5. Peroneal Vein: 5.1. Compressibility - Fully compressible: Thrombus - None: Flow - Phasic: Augmentation -Normal: Reflux - None. 6. Great Saphenous Vein: 6.1. Compressibility - Fully compressible: Thrombus - None: Flow - Phasic: Augmentation - Normal: Reflux - None. OTHER FINDINGS: Right: None significant. Left: None significant. IMPRESSION: Right: No evidence of deep or superficial vein thrombosis of the right lower extremity. Normal valve function noted of the right side. Left: No evidence of deep or superficial vein thrombosis of the left lower extremity. Normal valve function noted of the left side.
--- NOTE | 2017-03-31 18:16 | CARD ---
APPROVED REPORT EXAM: Two-dimensional and M-mode echocardiogram with Doppler and color Doppler. Other Information Quality : GoodRhythm : INDICATION Atrial Fibrillation Palpitations RISK FACTORS Hypertension Diabetes 2D DIMENSIONS IVSd0.9 (0.7-1.1cm)LVDd4.8 (3.9-5.9cm) PWd1.1 (0.7-1.1cm)LVDs3.3 (2.5-4.0cm) FS (%) 30.7 %LVEF (%)58.1 (>50%) M-Mode DIMENSIONS Left Atrium (MM)3.81 (2.5-4.0cm)Aortic Root3.89 (2.2-3.7cm) Aortic Cusp Exc.2.20 (1.5-2.0cm) Mitral Valve MV E Zavfowjf50.5cm/sMV A Lyqpvtzn50.8cm/sE/A ratio0.9 TDI E/Lateral E'0.0E/Medial E'0.0 Tricuspid Valve TR Peak [id number]/sTR Peak [id number] LEFT VENTRICLE The left ventricle is normal size. There is normal left ventricular wall thickness. The left ventricular function is normal. The left ventricular ejection fraction is within the normal range. No regional wall motion abnormalities noted. The left ventricular diastolic function is normal. No left ventricle thrombus noted on this study. There is no ventricular septal defect visualized. There is no left ventricular aneurysm. There is no mass noted in the left ventricle. RIGHT VENTRICLE The right ventricle is normal size. There is normal right ventricular wall thickness. The right ventricular systolic function is normal. ATRIA The left atrium size is normal. The right atrium size is normal. The interatrial septum is intact with no evidence for an atrial septal defect. AORTIC VALVE The aortic valve is normal in structure and function. No aortic regurgitation is present. There is no aortic valvular stenosis. There is no aortic valvular vegetation. MITRAL VALVE The mitral valve is normal in structure and function. There is no evidence of mitral valve prolapse. There is no mitral valve stenosis. There is no mitral valve regurgitation noted. TRICUSPID VALVE The tricuspid valve is normal in structure and function. There is trace tricuspid valve regurgitation noted. There is no tricuspid valve prolapse or vegetation. There is no tricuspid valve stenosis. PULMONIC VALVE The pulmonary valve is normal in structure and function. There is no pulmonic valvular regurgitation. There is no pulmonic valvular stenosis. GREAT VESSELS The aortic root is mildly dialted at 3.9 cm diameter. The ascending aorta is mildy dilated at 4.0 cm diameter. The pulmonary artery is normal. The IVC is normal in size and collapses >50% with inspiration. PERICARDIAL EFFUSION The pericardium appears normal. There is no pleural effusion. <Conclusion> Normal left ventricular systolic function. Normal Doppler. The aortic root is mildly dialted at 3.9 cm diameter. The ascending aorta is mildy dilated at 4.0 cm diameter.
--- NOTE | 2017-03-31 18:22 | CARD ---
APPROVED REPORT EKG Measurement Heart [id number] <Conclusion> Sinus bradycardia Possible Left atrial enlargement Borderline ECG
--- NOTE | 2017-03-31 18:33 | CARD ---
APPROVED REPORT EKG Measurement Heart [id number] <Conclusion> Atrial fibrillation Minimal voltage criteria for LVH, may be normal variant Abnormal ECG
--- NOTE | 2017-04-01 23:44 | CARD ---
APPROVED REPORT EKG Measurement Heart [id number] <Conclusion> Sinus bradycardia Possible Left atrial enlargement Borderline ECG
== END 2017-03-31 14:22 | disposition home or self-care (01) | DRG 310 ==
LOC: C.ENDO 06:53 → C.9S 12:45 → C.5S 15:27 → OBSVTOIN 22:36
PROVIDERS: ADMIT Hospitalist; ATTEND Hospitalist
PROC: 0DB88ZX Excision of Small Intestine, Via Natural or Artificial Opening Endoscopic, Diagnostic (ICD-10-PCS; principal; 2017-03-30 09:10)
DX: I48.91 Unspecified atrial fibrillation (principal); E11.65 Type 2 diabetes mellitus with hyperglycemia; E78.00 Pure hypercholesterolemia, unspecified; I10 Essential (primary) hypertension; K44.9 Diaphragmatic hernia without obstruction or gangrene; K31.7 Polyp of stomach and duodenum; B96.81 Helicobacter pylori [H. pylori] as the cause of diseases classified elsewhere; K29.50 Unspecified chronic gastritis without bleeding; Z79.4 Long term (current) use of insulin; R79.1 Abnormal coagulation profile